=== PATIENT | female | born 1950 | race Caucasian/White ===

== ENCOUNTER 2022-10-22 13:30 | Outpatient (CLI) | payer OTHER, SELFPAY ==
--- NOTE | ~2022-10-22 | CT_ITS ---
EXAMINATION: CT LE LT wo con DATE: 10/22/2022 14:09 INDICATION: Left knee osteoarthritis and pain for preoperative evaluation TECHNIQUE: High resolution computed tomography (CT) of the left lower extremity from the hip through the ankle was performed without intravenous contrast. Additional sagittal and coronal reconstructions were performed. Automated exposure control and iterative reconstruction technique were employed. The dose-length product was 1631.51 mGy-cm. COMPARISON: Left knee radiographs dated 09/20/2022 FINDINGS: Bone alignment is normal. No fracture. Osteoarthritis at the left knee with moderate to severe joint space narrowing on the prior weightbearing radiographs and with subarticular eburnation and mild cyst like changes along the medial tibial plateau and anterior weightbearing medial femoral condyle. Small marginal osteophytes in all 3 compartments of the knee. Additional minimal to mild polyarticular ost eoarthritis at the left hip and multiple joints of the left foot and ankle. Heterotopic ossification along the deep deltoid ligament at the ankle consistent with chronic medial ankle sprain. Mild distal Achilles enthesopathy with small enthesophyte and enthesopathic ossicles at the calcaneal insertion of Achilles tendon. Additional moderate-sized plantar calcaneal spur. No evident joint effusions in t he left lower limb. Musculature in the left lower limbs unremarkable. Visualized portion of the left hemipelvis is unremarkable. No pathologically enlarged left pelvic or inguinal lymphadenopathy. IMPRESSION: 1. Moderate to severe medial compartment predominant tricompartmental osteoarthritis at the left knee . Reviewed, dictated and finalized at location A. TENDER IMPRESSION: 1. Moderate to severe medial compartment predominant tricompartmental osteoarth ritis at the left knee.
[2022-10-22 13:59] LABS: Hematocrit 39.2 % (37.0-47.0); Hemoglobin 13.2 g/dL (12.0-15.0)
[2022-10-22 14:08] LABS: Urine Cotinine NEGATIVE
--- NOTE | 2022-10-22 14:13 | ECG_ITS ---
Measurements Intervals [place] Rate: 70 P: 52 VT: 152 QRS: 20 QRSD: 87 T: 34 QT: 396 QTc: 430 Interpretive Statements SINUS RHYTHM NO PREVIOUS ECG AVAILABLE FOR COMPARISON Electronically Signed On 10-22-2022 15:01:20 [facility] [employer] RO[employer] ATTENDANT by Mary Han M.D.
[2022-10-22 14:19] LABS: Albumin Level 4.3 g/dL (3.5-5.1); Estimated Glomerular Filt Rate > 60; Glucose 103 mg/dL (65-110)
[2022-10-22 19:12] LABS: Hemoglobin A1C 5.3 % (<5.7)
== END 2022-10-22 13:31 | disposition home or self-care (01) ==
LOC: ANHIMG 13:31
PROVIDERS: Visit Provider Orthopaedic Surgery
DX: Z01.818 Encounter for other preprocedural examination (principal); M17.12 Unilateral primary osteoarthritis, left knee; I10 Essential (primary) hypertension; Z86.39 Personal history of other endocrine, nutritional and metabolic disease
CPT/HCPCS: 73700; 80307; 82040; 82565; 82947; 83036; 85014; 85018; 93005

== ENCOUNTER 2022-12-13 11:56 | Outpatient (CLI) | payer OTHER, SELFPAY ==
[2022-12-13 13:35] LABS: Basophils Percent Auto 0.5 % (0.2-1.2); Eosinophils Absolute Auto 0.1 K/mm3 (0-0.3); Eosinophils Percent Auto 1.6 % (0-4.4); Hematocrit 41.2 % (37.0-47.0); Hemoglobin 13.7 g/dL (12.0-15.0); Immature Granulocyte Absolute 0.01 K/mm3 (0.00-0.031); Immature Granulocyte Percent A 0.1 % (0-0.5); Lymphocytes Absolute Auto 2.57 K/mm3 (0.9-3.2); Lymphocytes Percent Auto 34.6 % (18.3-44.2); Mean Corpuscular HGB Conc 33.3 g/dl (32-36); Mean Corpuscular Hemoglobin 31.9 pg (26-34); Mean Platelet Volume 10.9 fl (7.4-10.4); Monocytes Absolute Auto 0.7 K/mm3 (0.1-0.6); Monocytes Percent Auto 9.7 % (2.6-8.5); Neutrophils Percent Auto 53.5 % (45.5-73.1); Platelet Count Result 176 k/mm3 (150-375); Red Blood Count 4.29 M/mm3 (4.2-5.4); Red Cell Distribution Width 13.2 % (11.5-14.5); White Blood Count 7.4 K/mm3 (4.5-10.0)
[2022-12-13 13:49] LABS: Urine Cotinine NEGATIVE
[2022-12-13 13:51] LABS: Albumin Level 4.5 g/dL (3.5-5.1); Estimated Glomerular Filt Rate > 60; Glucose 101 mg/dL (65-110)
== END 2022-12-13 11:57 | disposition home or self-care (01) ==
LOC: ANHSURGERY 12:02
PROVIDERS: Visit Provider Orthopaedic Surgery
DX: M17.12 Unilateral primary osteoarthritis, left knee (principal); Z01.818 Encounter for other preprocedural examination
CPT/HCPCS: 80307; 82040; 82565; 82947; 85025; 87081

== ENCOUNTER 2023-01-07 00:09 | Day surgery (SDC) | payer OTHER, SELFPAY ==
[2022-12-13 12:15] VITALS: BP 154/83; PULSE 84; RESP 16; TEMP 37.1; O2SAT 100; BMI 34.6
--- NOTE | 2022-12-13 12:25 | PC.NURSE ---
Report to the Outpatient Waiting Room, entrance under the green pavilion located off [facility], at time _8:30AM on date __01/07/23 . Planned Procedure Time: ___10:30 . Time changes happen often and if your time is changed the preop area will call you the afternoon before. - You and your visitor will be asked to self-screen and do not enter if you have any COVID symptoms. - Only one visitor is requested with a max of two and NO children visitors are allowed at this time. - The patient visitor may be requested to leave or wait in car when not with patient due to distancing restrictions. - A mask is optional within the hospital at this time. Patients may have clear liquids (water, carbonated beverages, clear teas, apple juice) until 3 hours prior to surgery with a maximum of 20 ounces. - No food from midnight until time of surgery Take the following medications with a SIP of water the morning of surgery: ___AMLODIPINE DO NOT STOP ANY OF YOUR OTHER PRESCRIPTION MEDICATIONS PRIOR TO SURGERY ?EXCEPT THE FOLLOWING Medications to discontinue per physician ___HOLD VITAMINS/SUPPLEMENTS FOR 7 DAYS PRE-OP Date to take last dose___12/31/22 Please no make-up, nail mongolian, hairspray, perfume, deodorant, or body powder the day of surgery. No jewelry (including any body piercings) or valuables the day of surgery, leave them at home. Please take a shower or bath the night before, or the morning of, surgery with an antibacterial soap. Wear comfortable, loose fitting clothing. Children are encouraged to wear pajamas. - Jewelry must be removed prior to entering the operating room. Rings and piercings that are not removed may be cut off. - The hospital will not accept responsibility for valuables. - Please leave all valuables, including medications, at home the day of surgery. If you are going home after surgery, a licensed milk pickup driver must drive you home. - NO public transportation without another adult if you receive anesthesia. - We recommend that an adult stay with you for 24 hours following discharge. - We also recommend that you do not drive, make important decision, drink alcoholic beverages, or take any drugs that were not prescribed by your health care provider for at least 24 hours after your discharge time. Follow any additional instructions given to you from your surgeon. If you or anyone in your household have experienced Covid symptoms in the past week, please notify your surgeon or the nurse liaison at the phone number below for possible testing. Telephone instructions given to __PATIENT & HUSBAND and asked if any additional questions and then verbalized understanding. Patient advised to call surgeon office or pre surgery nurse liaison [phone] if any additional questions.
--- NOTE | 2023-01-06 13:06 | WPDANESEPPF ---
Anes - Initial Pre Proc Eval Procedure: Operation Date: 01/07/23 10:30 Proposed Procedures p Left Custom Total Knee Arthroplasty - Javon Bernal MD Date/Time: 01/06/23 13:06 Surgeon: Javon Bernal MD Pre Op Diagnosis: primary oa left knee Patient Data Age: 72 Gender: F Height: 1.54 m Weight: 82.4 kg Last Vital Signs Temp 37.1 C 12/13/22 12:15 Pulse 84 12/13/22 12:15 Resp 16 12/13/22 12:15 BP 154/83 H 12/13/22 12:15 Pulse Ox 100 12/13/22 12:15 O2 Del Method Room Air 12/13/22 12:15 Allergies Allergy/AdvReac Type Severity Reaction Status Date / Time No Known Allergies Allergy Verified 01/07/23 08:35 Home Medications Medication Instructions Recorded Confirmed Type amlodipine 5 mg tablet 5 mg PO QAM 09/20/22 01/07/23 History metoprolol succinate 25 mg 12.5 mg PO HS 09/20/22 01/07/23 History tablet,extended release 24 hr omeprazole 20 mg capsule,delayed 20 mg PO QAM 09/20/22 01/07/23 History release simvastatin 20 mg tablet 20 mg PO HS 09/20/22 01/07/23 History lactobacillus combination no.9 4 4,000 mmu cells PO DAILY 10/09/22 01/07/23 History billion cell capsule (Adult 50 Plus Probiotic) multivitamin (Daily Multi-Vitamin 1 tablet PO DAILY 10/09/22 01/07/23 History tablet) coffee extract 100 mg-phosphatidyl 1 cap PO HS 12/13/22 01/07/23 History serine 100 mg capsule (Neuriva Original) ibuprofen 200 mg capsule 400 mg PO Q6-8H PRN Pain 12/13/22 01/07/23 History psyllium husk 0.4 gram capsule 0.4 g PO DAILY PRN Constipation 12/13/22 01/07/23 History (Metamucil) Patient hx anesthesia problems: none Family hx anesthesia problems: none Results Review: All pre-operative results and documents have been reviewed as part of the pre-operative evaluation. [facility] Past Medical History Medical History (Updated 01/06/23 @ 13:07 by Emile Blum DO) GERD (gastroesophageal reflux disease) History of hyperlipidemia History of trigger finger Hypertension Surgical History Surgical History (Updated 01/06/23 @ 13:07 by Emile Blum DO) History of tonsillectomy Social History Social History Smoking status: Never smoker Alcohol intake: current Drinks per week: 14 Alcohol use details: Socially Substance use: never Substance use type: does not use Lack of Transportation: No Lack of Food: Never True Current Housing: I Have Housing Concerned About Future Housing: No Difficulty Paying Gas/Electric Bills: No Difficulty Paying for Meds: No Currently Unemployed: No Education: High School Diploma/GED Difficulty w/ Childcare or Family Care: No Living arrangements: with family Additional living arrangements comments: JOSE Spiritual care concerns: No Anes - Eval Final PreProcedure Day of Procedure 01/06/23 13:06 Patient weight: obese Heart: regular rate and rhythm Lungs: clear to auscultation Airway: Mallampati scale class II Neurological: alert and oriented Last oral intake: >/= 8 hours ASA classification: III Emergent: no Anesthetic plan: proceed Anesthesia type and monitoring: general GIVS and standard monitoring Results Review: All pre-operative results and documents have been reviewed as part of the pre-operative evaluation. Informed Consent: The patient's anesthetic plan and its attendant risks and benefits were discussed with the patient/family/POA. Questions were solicited and answers provided to the satisfaction of the patient/family/POA.
[2023-01-07] VITALS (15 sets, daily range): BP systolic 110–151; BP diastolic 57–74; PULSE 74–99; RESP 12–20; TEMP 35.8–37.2; O2SAT 91–100
--- NOTE | ~2023-01-07 | XR_ITS ---
EXAMINATION: [id number] DATE: 01/07/2023 13:22 INDICATION: Postoperative evaluation following left total knee arthroplasty. TECHNIQUE: Anteroposterior and lateral views of the left knee were obtained. COMPARISON: None. FINDINGS: Left total knee arthroplasty without patellar resurfacing appears well seated and in near anatomic al ignment. No fractures identified. Small enthesophyte at the proximal pole of the patella. Expected p ostoperative subcutaneous and intra-articular gas. IMPRESSION: 1. Left total knee arthroplasty, negative for postoperative purposes. Reviewed, dictated and finalized at location A.
--- NOTE | 2023-01-07 07:25 | WPDHPUPDATE1 ---
History and Physical Update Update Date/Time: 01/07/23 07:25 History and Physical has been reviewed, including an updated exam of the patient. There are NO changes in the patient's condition. Risks, benefits, and alternatives have been discussed and questions answered. Patient agrees to proceed with procedure.
[2023-01-07] MEDS: LACTATED RINGERS 1,000 ML 30 ML IV CONT ×2 (08:56→12:53)
[2023-01-07] MEDS: TRANEXAMIC ACID 1,000MG/ISO100 1,000 MG/100 ML BAG 200 MG IVPB (09:54)
[2023-01-07] MEDS: ACETAMINOPHEN 500 MG TABLET 1000 MG PO ×2 (09:54→18:14)
--- NOTE | 2023-01-07 09:56 | WPDANESPNB ---
Anes - Peripheral Nerve Block Date/Time: 01/07/23 09:56 I have discussed with the patient/family/POA the placement of a peripheral nerve block for post-operative pain management, including associated risks, benefits, complications, and side effects. Alternative methods of post-operative analgesia were detailed. Questions were solicited and answers provided to the satisfaction of the patient/family/POA. Time-Out: A pre-procedural Time-Out was completed immediately before starting the procedure and confirmed: Patient Identification, Site, Procedure, Patient Position and the Availability of Requisite Equipment. Clinical Indications: Acute post-operative pain management requested by the operative surgeon. Nerve Block Insertion Note Anes-nerve block: adductor canal left Patient position: supine Skin prep: chlorhexidine Needle: 22 gauge, stimulating, insulated echogenic needle. Needle length: 80 mm Technique: ultrasound Injectate: bupivacaine 0.5% with epi 5 mcg/ml (30cc - no epi) Observations: tolerated well Complications: none Procedure start time:: 1019 Procedure end time:: 1022
[2023-01-07] MEDS: ceFAZolin 2 GM/D5W 50 ML 2 GM/50 ML BAG IVPB ×2 (10:40→18:13)
[2023-01-07] MEDS: GENTAMICIN BONE CEMENT REFOBACIN 1 EACH TOPICAL (11:20)
[2023-01-07] MEDS: fentaNYL CITRATE INJ (*CRX) 100 MCG/2 ML VIAL 25 MCG IV PUSH ×6 (13:06→13:52)
[2023-01-07] MEDS: diphenhydrAMINE HCl INJ 50 MG/ML VIAL 12.5 MG IV PUSH (14:00)
--- NOTE | 2023-01-07 14:25 | P.OP_ITS ---
Procedure Note - Detailed Date of Procedure 01/07/23 Pre-op Diagnosis primary oa left knee Post-op Diagnosis Same Procedure Performed Total knee arthroplasty, left. Surgeon Javon Bernal MD Anesthesia General and Regional (Subsartorial block.) Findings Good bone quality. Minimal medial release. Slight PCL release. Description of Procedure Preoperative antibiotics were given. The limb was prepped and draped in the usual sterile fashion with a well-padded tourniquet high on the thigh. The limb was exsanguinated and the tourniquet inflated to 300 mmHg. A longitudinal incision was created just medial to the patella. A trivector approach to the knee was performed. Arthrotomy was taken down through the joint capsule. No significant releases were initially taken. The femur was exposed and the F1 jig was applied. The coring tool was used to remove the cartilage for the F2 jig to sit flush with the bone. The jig was pinned and the distal cut carefully taken. Caliper measurements confirmed appropriate bony resections according to the preoperative templated plan. The F4 cutting jig for the femur was applied, at the standard rotation. The AP and anterior chamfer cuts were taken. The F5 jig was applied and the posterior chamfer cuts were taken. The tibia was prepared using the T1 jig, after removing cartilage for the jig contact points. Proper alignment was checked with the alignment emilia. The tibia was cut using the T1u guide. Gap balancing was performed. Gap measurements were taken and the knee was trialed. Excellent alignment and soft tissue balancing was confirmed. The posterior cruciate ligament was recessed along the proximal tibia. The patella was in good condition, and was denervated. Meniscal remnants were removed. The trial components were assembled. Excellent range of motion and proper soft tissue balancing were confirmed throughout the full range of motion. Patellar tracking was excellent. The knee was copiously irrigated periodically throughout the procedure. The real implants were cemented into pos ition. Excess cement was carefully removed. The wound was closed in layers with interrupted #1 Vicryl suture, #2 strata fix suture, 2-0 strata fix suture, 3-0 strata fix suture. Steri-Strips placed on the skin with the knee flexed. Sterile bulky dressing applied. The patient was brought to the recovery room in stable condition. There were no complications. Implants Conform[employer] Imprint total knee arthroplasty. Cemented. Cruciate retaining. 8 mm insert. Estimated Blood Loss -100.0 Drains No Complications No immediate complications Condition Stable Disposition PACU [facility] Billing Surgery - Charge Forward: Surgery Billing
[2023-01-07] MEDS: LORATADINE 10 MG TABLET PO (14:29)
--- NOTE | 2023-01-07 14:40 | PC.NURSE ---
This patient, Rosa Elena Acosta, was admitted to 3 [facility] Surg Room 328-01. Patient/family oriented to hospital policies and general routines including ID bracelet, bed and alarms, visiting hours, pain management, procedures, bathroom and other care routines, personal items, smoking policy, room service/diet, and visiting hours. Report received from Altagracia CLIFTON Information on how to activate the Rapid Response Team has been discussed. Patient/Family are encouraged to report perceived risks to care and to ask questions if they do not understand what they are told or what they should do.
[2023-01-07] MEDS: oxyCODONE HCL (*CRX) 5 MG TAB IR PO ×3 (14:47→22:17)
[2023-01-07] MEDS: MELOXICAM 7.5 MG TABLET PO (18:14)
[2023-01-07] MEDS: ASPIRIN 81 MG ENTERIC TABLET PO (18:15)
[2023-01-07] MEDS: SENNA/DOCUSATE SODIUM TABLET 2 TAB PO (18:15)
[2023-01-07] MEDS: METOPROLOL SUCCINATE EXT REL 12.5 MG TABCR PO (20:10)
[2023-01-07] MEDS: SIMVASTATIN 20 MG TABLET PO (20:11)
[2023-01-08 00:28] VITALS: BP 106/47; PULSE 84; RESP 18; TEMP 36.3; O2SAT 95
[2023-01-08] MEDS: ACETAMINOPHEN 500 MG TABLET 1000 MG PO ×2 (02:18→06:21)
[2023-01-08] MEDS: oxyCODONE HCL (*CRX) 5 MG TAB IR PO ×2 (02:18→06:21)
[2023-01-08] MEDS: ceFAZolin 2 GM/D5W 50 ML 2 GM/50 ML BAG IVPB ×2 (02:19→10:15)
[2023-01-08 04:00] VITALS: BP 107/55; PULSE 70; RESP 18; TEMP 36.2; O2SAT 96
[2023-01-08 06:14] LABS: Basophils Percent Auto 0.3 % (0.2-1.2); Eosinophils Percent Auto 0.2 % (0-4.4); Hematocrit 34.2 % (37.0-47.0); Hemoglobin 11.2 g/dL (12.0-15.0); Immature Granulocyte Absolute 0.04 K/mm3 (0.00-0.031); Immature Granulocyte Percent A 0.4 % (0-0.5); Lymphocytes Absolute Auto 1.36 K/mm3 (0.9-3.2); Lymphocytes Percent Auto 13.1 % (18.3-44.2); Mean Corpuscular HGB Conc 32.7 g/dl (32-36); Mean Corpuscular Hemoglobin 32.3 pg (26-34); Mean Corpuscular Volume 98.6 fl (80-100); Mean Platelet Volume 11.2 fl (7.4-10.4); Monocytes Absolute Auto 1.1 K/mm3 (0.1-0.6); Monocytes Percent Auto 10.7 % (2.6-8.5); Neutrophils Absolute Auto 7.8 K/mm3 (1.3-6.7); Neutrophils Percent Auto 75.3 % (45.5-73.1); Platelet Count Result 147 k/mm3 (150-375); Red Blood Count 3.47 M/mm3 (4.2-5.4); Red Cell Distribution Width 13.2 % (11.5-14.5); White Blood Count 10.4 K/mm3 (4.5-10.0)
[2023-01-08 06:26] LABS: Anion Gap 8 mmol/L (8-16); Blood Urea Nitrogen 16 mg/dL (7-17); Calcium 8.4 mg/dL (8.4-10.2); Carbon Dioxide 26 mmol/L (22-30); Chloride 102 mmol/L (98-107); Estimated CRCL calculation 61 ml/min; Estimated Glomerular Filt Rate > 60; Glucose 107 mg/dL (65-110); Potassium 4.3 mmol/L (3.4-5.0); Sodium 136 mmol/L (137-145)
[2023-01-08] MEDS: SENNA/DOCUSATE SODIUM TABLET 2 TAB PO (07:59)
[2023-01-08 08:00] VITALS: BP 116/51; PULSE 76; RESP 18; TEMP 36.1; O2SAT 98
[2023-01-08] MEDS: predniSONE 5 MG TABLET PO (08:00)
[2023-01-08] MEDS: MELOXICAM 7.5 MG TABLET PO (08:00)
[2023-01-08] MEDS: ASPIRIN 81 MG ENTERIC TABLET PO (08:00)
[2023-01-08] MEDS: amLODIPine BESYLATE 5 MG TABLET PO (08:00)
[2023-01-08 08:06] VITALS: BP 117/56
--- NOTE | 2023-01-08 08:28 | PM.DS ---
DS: Admitting Diagnosis Discharge Date 01/08/23 Admitting Diagnosis OA knee Left DS: Discharge Diagnosis Discharge Diagnosis (1) Status post total left knee replacement: Code(s): Z96.652 - Presence of left artificial knee joint Status: Acute Assessment and Plan: Postop day 1: Left total knee arthroplasty. Patient tolerated procedure well. No complications. Pain manageable with pain medication. No numbness or tingling. We had a lengthy discussion regarding postoperative wound care, limitations, expectations, and exercises. Patient shows good understanding. She has had initial physical therapy and is tolerating it well. Patient has followup appointment with Dr. Bernal in 3 weeks. DS: Summary Hospital Course Reason for hospitalization: Total knee arthroplasty Hospital Course: Patient tolerated procedure well. Has had initial PT/OT. Status at Discharge Functional status at discharge: uses cane/walker Overall status at discharge: patient is progressing back to baseline Time Spent with Patient Time attestation: Total time spent providing and/or coordinating discharge services: Exam Narrative: 72-year-old overweight female. Resting comfortably in chair. Alert and oriented x3. No acute distress. Wearing compression socks bilaterally. Dressing intact without drainage. Mild swelling. No ecchymosis. No erythema. No hematoma. Range of motion limited due to pain. Calf nontender. Neurologic status intact. No varicosities. Distal pulses palpable. DS: Data Data Completed and Pending Labs on day of discharge: Labs from last 24 hours 01/08/23 01/07/23 05:40 08:53 WBC 10.4 H RBC 3.47 L Hgb 11.2 L Hct 34.2 L MCV 98.6 MCH 32.3 MCHC 32.7 RDW 13.2 Plt Count 147 L MPV 11.2 H Immature Gran % (Auto) 0.4 Neut % (Auto) 75.3 H Lymph % (Auto) 13.1 L Walker % (Auto) 10.7 H Eos % (Auto) 0.2 Baso % (Auto) 0.3 Lymph # (Auto) 1.36 Walker # (Auto) 1.1 H Eos # (Auto) 0.0 Baso # (Auto) 0.0 Abs Immat Gran (auto) 0.04 H Absolute Neuts (auto) 7.8 H Absolute Nucleated RBC 0.0 Nucleated RBC % 0.0 Sodium 136 L Potassium 4.3 Chloride 102 Carbon Dioxide 26 Anion Gap 8 BUN 16 Creatinine 0.70 Estim Creat Clear Calc 61 Estimated GFR > 60 Glucose 107 Calcium 8.4 Blood Type A Positive Antibody Screen Negative Discharge Plan Discharge Patient Disposition: Home, Self-Care Discharge Instructions: See green instruction sheets Stand Alone Forms: General Discharge Instructions Follow-up/Referrals: Malini Judd PA [[facility]] - Discharge Medications: New aspirin 81 mg tablet,delayed release (DR/EC) 81 mg PO BID 14 Days Qty: 28 0RF meloxicam 15 mg tablet 15 mg PO DAILY Qty: 30 0RF Rx Instructions: Cut in half. Take 1/2 in morning and 1/2 at night. Take with food. Stop if stomach upset. prednisone 5 mg tablet 5 mg PO DAILY 21 Days Qty: 21 0RF oxycodone-acetaminophen 5-325 mg tablet 1 - 2 tablet PO Q4-6H MDD 6 PRN (Reason: pain) Qty: 30 0RF Continued amlodipine 5 mg tablet 5 mg PO QAM omeprazole 20 mg capsule,delayed release(DR/EC) 20 mg PO QAM metoprolol succinate 25 mg tablet extended release 24 hr 12.5 mg PO HS simvastatin 20 mg tablet 20 mg PO HS multivitamin [Daily Multi-Vitamin] Tablet 1 tablet PO DAILY Adult 50 Plus Probiotic 4 billion cell capsule 4,000 mmu cells PO DAILY Rx Instructions: administer with a meal ibuprofen 200 mg Capsule 400 mg PO Q6-8H PRN (Reason: Pain) psyllium husk [Metamucil] 0.4 gram Capsule 0.4 g PO DAILY PRN (Reason: Constipation) Neuriva Original 100-100 mg Capsule 1 cap PO HS
[2023-01-08] MEDS: PANTOPRAZOLE 40 MG TABLET PO (08:52)
== END 2023-01-08 11:40 | disposition home or self-care (01) ==
LOC: ANHSURGERY 12:00 → ANH3MEDSUR 14:34
PROVIDERS: Physician Assistant Surgical; PCP Family Medicine; Visit Provider Orthopaedic Surgery
PROC: (CPT 27447; principal; 2023-01-07 10:30)
DX: M17.12 Unilateral primary osteoarthritis, left knee (principal); G89.18 Other acute postprocedural pain; I10 Essential (primary) hypertension; E78.5 Hyperlipidemia, unspecified; K21.9 Gastro-esophageal reflux disease without esophagitis; E66.9 Obesity, unspecified; Z68.35 Body mass index [BMI] 35.0-35.9, adult
CPT/HCPCS: 27447; 64447; 36415; 73560; 80048; 80307; 82040; 82565; 82947; 85025; 86850; 86900; 86901; 87081; 97110; 97116; 97161; 97165; 97530; 97535; A9270; C1713; C1776; J0171; J0690; J1100; J1170; J1200; J1885; J2250; J2270; J2370; J2405; J2704; J2795; J3010; J7120; J7512

== ENCOUNTER 2024-03-01 08:38 | Outpatient (CLI) | payer OTHER, SELFPAY ==
--- NOTE | ~2024-03-01 | XR_ITS ---
EXAMINATION: XR knee LT 3V DATE: 03/01/2024 08:56 INDICATION: Presence of left artificial knee joint. TECHNIQUE: 2 views of left knee including standing views were obtained. COMPARISON: Left knee radiographs 03/03/2023 FINDINGS: There is a total left knee arthroplasty without patellar resurfacing in near-anatomic align ment. No fracture. No periprosthetic lucency to suggest loosening or infection. There are tiny osteop hytes of the patella. No knee joint effusion. IMPRESSION: 1. Total left knee arthroplasty in near-anatomic alignment. Reviewed, dictated and finalized at location E.
== END 2024-03-01 08:39 | disposition home or self-care (01) ==
PROVIDERS: PCP Family Medicine; Visit Provider Orthopaedic Surgery
DX: Z96.652 Presence of left artificial knee joint (principal)
CPT/HCPCS: 73562